=== PATIENT | male | born 1980 | race Caucasian/White ===

== ENCOUNTER 2017-06-02 15:08 | Emergency (ER) | payer MEDICAID ==
[~2017-06-02] VITALS: Ht 188 cm; Wt 80.0 kg
[~2017-06-02 15:08] MED LIST: METH10TA PO; OSEL75 PO; ROXI30TA14 PO
[2017-06-02 15:10] VITALS: BP 134/86; PULSE 77; RESP 16; TEMP 98.3; O2SAT 98
[2017-06-02] MEDS ORDERED: SODIUM CHLOR 0.9% 1000 ML INJ 1,000 ML IV ONE (15:45)
[2017-06-02] MEDS ORDERED: SODIUM CHLORIDE 0.9% FLUSH 10 ML FLUSH IVF PRN (15:45)
[2017-06-02] MEDS ORDERED: KETOROLAC TROMETHAMINE 30 MG/ML (IVP) VIAL IVP ONE (15:45)
--- NOTE | 2017-06-02 16:10 | PD ---
HPI Chief Complaint: Chest Pain Time Seen by Provider: 15:37 Travel History International Travel<30 days: No Contact w/Intl Traveler<30days: No Traveled to known affect area: No History of Present Illness HPI Is a 36-year-old man who presents emergent [place] complaining of some chest pain. Pain is mostly in the left side of the chest. She is getting over a chest cold. He states he was coughing really hard last week. He was at a productive cough and some wheezing last week. He is not having any cough now. Pain is improved with sitting forward worse with lying back. Pain is also worse with deep breathing. He denies any history of heart disease. He otherwise has been feeling well and healthy prior to this. No other complaints. History Past Medical History Medical History: Denies Significant Hx Social History Alcohol Use: No Tobacco Use: No Allergies-Medications (Allergen,Severity, Reaction): Coded Allergies: No Known Allergies (Verified , 06/02/17) Reported Meds & Prescriptions Reported Meds & Active Scripts Active No Active Prescriptions or Reported Medications Review of Systems Except as stated in HPI: all other systems reviewed are Neg Physical Exam Narrative GENERAL: Well-appearing 36 year-old woman, no acute distress. SKIN: Focused skin assessment warm/dry. NECK: Trachea midline. No JVD. CARDIOVASCULAR: Regular rate and rhythm. No murmur appreciated. RESPIRATORY: No accessory muscle use. Clear to auscultation. Breath sounds equal bilaterally. GASTROINTESTINAL: Abdomen soft, non-tender, nondistended. Hepatic and splenic margins not palpable. MUSCULOSKELETAL: No obvious deformities. No edema. NEUROLOGICAL: Awake and alert. No obvious cranial nerve deficits. Motor grossly within normal limits. Normal speech. PSYCHIATRIC: Appropriate mood and affect; insight and judgment normal. Data Data Last Documented VS Vital Signs Date Time Temp Pulse Resp B/P Pulse Ox O2 Delivery O2 Flow Rate FiO2 06/02/17 16:17 60 16 121/83 98 Room Air 06/02/17 15:10 98.3 Orders Electrocardiogram (06/02/17 15:39) Complete Blood Count With Diff (06/02/17 15:39) Comprehensive Metabolic Panel (06/02/17 15:39) Magnesium (Mg) (06/02/17 15:39) Troponin I (06/02/17 15:39) Ecg Monitoring (06/02/17 15:39) Iv Access Insert/Monitor (06/02/17 15:39) Oximetry (06/02/17 15:39) Oxygen Administration (06/02/17 15:39) Sodium Chloride 0.9% Flush (Ns Flush) (06/02/17 15:45) Chest, Pa & Lat (06/02/17 15:39) Sodium Chlor 0.9% 1000 Ml Inj (Ns 1000 M (06/02/17 15:45) Ketorolac Inj (Toradol Inj) (06/02/17 15:45) Labs Laboratory Tests Test 06/02/17 15:50 White Blood Count 6.9 TH/MM3 Red Blood Count 4.79 MIL/MM3 Hemoglobin 14.3 GM/DL Hematocrit 40.6 % Mean Corpuscular Volume 84.7 FL Mean Corpuscular Hemoglobin 29.9 PG Mean Corpuscular Hemoglobin 35.3 % Concent Red Cell Distribution Width 13.3 % Platelet Count 200 TH/MM3 Mean Platelet Volume 8.9 FL Neutrophils (%) (Auto) 52.5 % Lymphocytes (%) (Auto) 37.6 % Monocytes (%) (Auto) 8.0 % Eosinophils (%) (Auto) 1.1 % Basophils (%) (Auto) 0.8 % Neutrophils # (Auto) 3.6 TH/MM3 Lymphocytes # (Auto) 2.6 TH/MM3 Monocytes # (Auto) 0.6 TH/MM3 Eosinophils # (Auto) 0.1 TH/MM3 Basophils # (Auto) 0.1 TH/MM3 CBC Comment DIFF FINAL Differential Comment Sodium Level 138 MEQ/L Potassium Level 4.1 MEQ/L Chloride Level 105 MEQ/L Carbon Dioxide Level 25.5 MEQ/L Anion Gap 8 MEQ/L Blood Urea Nitrogen 13 MG/DL Creatinine 0.85 MG/DL Estimat Glomerular Filtration 103 ML/MIN Rate Random Glucose 93 MG/DL Calcium Level 8.8 MG/DL Magnesium Level 2.1 MG/DL Total Bilirubin 0.3 MG/DL Aspartate Amino Transf 30 U/L (AST/SGOT) Alanine Aminotransferase 37 U/L (ALT/SGPT) Alkaline Phosphatase 76 U/L Troponin I LESS THAN 0.02 NG/ML Total Protein 7.4 GM/DL Albumin 4.0 GM/DL MDM Medical Decision Making Medical Screen Exam Complete: Yes Emergency Medical Condition: Yes Interpretation(s) My review of EKG: Nonspecific widespread ST elevations, early re-pole versus pericarditis. There is no real MO segment changes to match this. LABS: CBC is unremarkable. CMP is unremarkable. Troponin negative. Chest x-ray: No evidence of acute cardiopulmonary disease. Differential Diagnosis Pericarditis, pleurisy, costochondritis, ACS, PE, gastritis, other Narrative Course Medical decision making 36 year-old woman positional chest pain starting after cold suggestive of either Percocet as a pleurisy. EKG shows wide spread ST elevations this seems more consistent with early re-pole that definite pericarditis. I'll obtain a MO interval changes. We'll check labs, troponin, chest x-ray, supportive treatment with NSAIDs, and outpatient follow-up. FINAL: Patient with likely pericarditis given EKG, positional chest pain, and history. We'll treat with NSAIDs, outpatient follow-up. Diagnosis Primary Impression: Pericarditis Additional Instructions: Take Naprosyn as prescribed. Follow-up with your primary doctor for not completely well in the next 3-5 days. Return to the emergency department for any new or worsening symptoms. Med/Other Pt SpecificInfo: No Change to Meds Scripts Naproxen (Naprosyn)500 Mg Pnt000 Mg PO BID PRN (PAIN SCALE 1 TO 10) #20 TAB Prov:Honorio Bolden MD 06/02/17 Disposition: 01 DISCHARGE HOME Condition: Stable Honorio Bolden MD Jun 02, 2017 16:10
--- NOTE | 2017-06-02 16:11 | RADRPT ---
EXAM DATE/TIME: 06/02/2017 15:56 [place] COMPARISON: No previous studies available for comparison. INDICATIONS : Chest pain. MEDICAL HISTORY : None. SURGICAL HISTORY : None. ENCOUNTER: Initial ACUITY: 1 day PAIN SCORE: 0/10 LOCATION: Bilateral chest FINDINGS: PA and lateral views of the chest demonstrate the lungs to be symmetrically aerated without evidence of mass, infiltrate or effusion. The cardiomediastinal contours are unremarkable. Osseous structure s are intact. CONCLUSION: No evidence of acute cardiopulmonary disease. Jed Savage MD on June 02, 2017 at 16:07 Board Certified Radiologist. This report was verified electronically.
[2017-06-02 16:17] VITALS: BP 121/83; PULSE 60; RESP 16; O2SAT 98
[2017-06-02 16:40] LABS: AUTOMATED NEUTROPHIL # 3.6 TH/MM3 (1.8-7.7); BASOPHIL # 0.1 TH/MM3 (0-0.2); BASOPHIL % 0.8 % (0.0-2.0); EOSINOPHIL # 0.1 TH/MM3 (0-0.4); EOSINOPHIL % 1.1 % (0.0-4.0); HEMATOCRIT 40.6 % (39.0-51.0); HEMO FLAGS DIFF FINAL; LYMPH % 37.6 % (9.0-44.0); LYMPHOCYTE # 2.6 TH/MM3 (1.0-4.8); MEAN CELL VOLUME 84.7 FL (80.0-100.0); MEAN CORPUSCULAR HEMOGLOBIN 29.9 PG (27.0-34.0); MEAN CORPUSCULAR HGB CONC 35.3 % (32.0-36.0); NEUT % 52.5 % (16.0-70.0); PLATELET COUNT 200 TH/MM3 (150-450); RED BLOOD COUNT 4.79 MIL/MM3 (4.50-5.90); RED CELL DISTRIBUTION WIDTH 13.3 % (11.6-17.2); WHITE BLOOD COUNT 6.9 TH/MM3 (4.0-11.0)
[2017-06-02 17:05] LABS: ALKALINE PHOSPHATASE 76 U/L (45-117); TOTAL BILIRUBIN ADULT 0.3 MG/DL (0.2-1.0)
[2017-06-02 17:09] LABS: ALT (GPT) 37 U/L (12-78); ANION GAP 8 MEQ/L (5-15); AST (GOT) 30 U/L (15-37); BICARBONATE 25.5 MEQ/L (21.0-32.0); BLOOD UREA NITROGEN 13 MG/DL (7-18); CHLORIDE 105 MEQ/L (98-107); GLOMERULAR FILTRATION RATE 103 ML/MIN (>89); MAGNESIUM 2.1 MG/DL (1.5-2.5); SODIUM (NA) 138 MEQ/L (136-145)
[2017-06-02 17:10] LABS: POTASSIUM 4.1 MEQ/L (3.5-5.1)
[2017-06-02] MEDS ORDERED: NAPR500 PO (17:16)
--- NOTE | 2017-06-03 16:17 | EKG ---
Date Performed: 06/02/2017 Time Performed: 15:34:23 PTAGE: 36 years EKG: Sinus rhythm ST ELEVATION, PROBABLY EARLY REPOLARIZATION BORDERLINE ECG NO PREVIOUS TRACING DOCTOR: Keo Greene Interpretating Date/Time 06/03/2017 16:15:33
== END 2017-06-02 17:41 | disposition home or self-care (01) ==
LOC: NEPD 15:08
DX: I31.9 Disease of pericardium, unspecified (principal)
CPT/HCPCS: 71020; 80053; 83735; 84484; 85025; 93005; 96361; 96374; 99285; J1885; J7030

== ENCOUNTER 2018-04-13 11:05 | Emergency (ER) | payer MEDICAID ==
[~2018-04-13] VITALS: Ht 188 cm; Wt 91.5 kg
[~2018-04-13 11:05] MED LIST changes: -METH10TA PO; +NAPR500 PO; -OSEL75 PO; -ROXI30TA14 PO
[2018-04-13] MEDS ORDERED: IOHEXOL 300 MG/ML 100 ML BTL (for Rad CT) IVCONTRAST ONE (11:06)
[2018-04-13 11:09] VITALS: BP 143/84; PULSE 77; RESP 22; TEMP 97.7; O2SAT 100
[2018-04-13] MEDS ORDERED: SODIUM CHLOR 0.9% 1000 ML INJ 1,000 ML IV SCH (11:17)
--- NOTE | 2018-04-13 11:22 | PD ---
HPI Chief Complaint: Abdominal Pain Time Seen by Provider: 11:12 Travel History International Travel<30 days: No Contact w/Intl Traveler<30days: No Traveled to known affect area: No History of Present Illness HPI The patient is a 37-year-old male who presents to the emergency department for abdominal pain. The patient states 3 days ago he developed generalized abdominal pain, however, he now notes abdominal pain is located the right lower quadrant. He does complain of pain in the right lower quadrant that is worse with coughing, sneezing, and certain movements. He denies any nausea, vomiting, or diarrhea. He did have a bowel movement earlier today, slightly smaller than normal, but denies any constipation. He denies any associated fever, chills, or sweats. However, pain is progressing and is now localized to the right lower quadrant. He denies any previous abdominal surgeries. [facility] Past Medical History Medical History: Denies Significant Hx Past Surgical History Surgical History: No Previous Surgery Social History Alcohol Use: No Tobacco Use: Yes (CIGARS) Substance Use: Yes (MARIJUANA) Allergies-Medications (Allergen,Severity, Reaction): Coded Allergies: No Known Allergies (Verified Adverse Reaction, Unknown, 04/13/18) Reported Meds & Prescriptions Reported Meds & Active Scripts Active No Active Prescriptions or Reported Medications Review of Systems Except as stated in HPI: all other systems reviewed are Neg General / Constitutional: No: Fever, Chills Cardiovascular: No: Chest Pain or Discomfort Respiratory: No: Shortness of Breath Gastrointestinal: Positive: Abdominal Pain, No: Nausea, Vomiting, Diarrhea Genitourinary: No: Dysuria, Hematuria Skin: No Rash Physical Exam Narrative GENERAL: Awake, alert, pleasant 37-year-old male who appears his stated age and is in no acute respiratory distress. SKIN: Focused skin assessment warm/dry. HEAD: Atraumatic. Normocephalic. EYES: Pupils equal and round. No scleral icterus. No injection or drainage. ENT: No nasal bleeding or discharge. Mucous membranes pink and moist. NECK: Trachea midline. No JVD. CARDIOVASCULAR: Regular rate and rhythm. No murmur appreciated. RESPIRATORY: No accessory muscle use. Clear to auscultation. Breath sounds equal bilaterally. GASTROINTESTINAL: Abdomen soft, positive McBurney's. Mild guarding. Negative Leonardo's. Negative Rovsing. Negative obturator. Negative heel tap. MUSCULOSKELETAL: No obvious deformities. No clubbing. No cyanosis. No edema. NEUROLOGICAL: Awake and alert. No obvious cranial nerve deficits. Motor grossly within normal limits. Normal speech. PSYCHIATRIC: Appropriate mood and affect; insight and judgment normal. Data Data Last Documented VS Vital Signs Date Time Temp Pulse Resp B/P (MAP) Pulse Ox O2 Delivery O2 Flow Rate FiO2 04/13/18 11:31 18 98 Room Air 04/13/18 11:09 97.7 77 143/84 (103) Orders Orders Complete Blood Count With Diff (04/13/18 11:17) Comprehensive Metabolic Panel (04/13/18 11:17) Lipase (04/13/18 11:17) Urinalysis - C+S If Indicated (04/13/18 11:17) Ct Abd/Pel W Iv Contrast(Rout) (04/13/18 11:17) Iv Access Insert/Monitor (04/13/18 11:17) Ecg Monitoring (04/13/18 11:17) Oximetry (04/13/18 11:17) Morphine Inj (Morphine Inj) (04/13/18 11:30) Sodium Chlor 0.9% 1000 Ml Inj (Ns 1000 M (04/13/18 11:17) Sodium Chloride 0.9% Flush (Ns Flush) (04/13/18 11:30) Ondansetron Odt (Zofran Odt) (04/13/18 11:30) Oral Contrast - Adult (04/13/18 11:21) Diatrizoate Liq (Md [place]bert Liq) (04/13/18 11:24) Nicotine 21 Mg Patch.24 Hr (Habitrol 21 (04/13/18 13:00) Iohexol 300 Inj (Rad Ct) (Omnipaque 300 (04/13/18 11:06) Ketorolac Inj (Toradol Inj) (04/13/18 14:15) Morphine Inj (Morphine Inj) (04/13/18 14:15) Labs Laboratory Tests Test 04/13/18 11:21 04/13/18 12:00 White Blood Count 7.7 TH/MM3 Red Blood Count 5.02 MIL/MM3 Hemoglobin 14.8 GM/DL Hematocrit 42.6 % Mean Corpuscular Volume 85.0 FL Mean Corpuscular Hemoglobin 29.6 PG Mean Corpuscular Hemoglobin Concent 34.8 % Red Cell Distribution Width 13.1 % Platelet Count 217 TH/MM3 Mean Platelet Volume 8.7 FL Neutrophils (%) (Auto) 64.8 % Lymphocytes (%) (Auto) 25.8 % Monocytes (%) (Auto) 7.7 % Eosinophils (%) (Auto) 0.9 % Basophils (%) (Auto) 0.8 % Neutrophils # (Auto) 5.0 TH/MM3 Lymphocytes # (Auto) 2.0 TH/MM3 Monocytes # (Auto) 0.6 TH/MM3 Eosinophils # (Auto) 0.1 TH/MM3 Basophils # (Auto) 0.1 TH/MM3 CBC Comment DIFF FINAL Differential Comment Blood Urea Nitrogen 7 MG/DL Creatinine 0.92 MG/DL Random Glucose 100 MG/DL Total Protein 7.6 GM/DL Albumin 4.0 GM/DL Calcium Level 8.7 MG/DL Alkaline Phosphatase 83 U/L Aspartate Amino Transf (AST/SGOT) 17 U/L Alanine Aminotransferase (ALT/SGPT) 28 U/L Total Bilirubin 0.4 MG/DL Sodium Level 139 MEQ/L Potassium Level 4.0 MEQ/L Chloride Level 107 MEQ/L Carbon Dioxide Level 23.9 MEQ/L Anion Gap 8 MEQ/L Estimat Glomerular Filtration Rate 93 ML/MIN Lipase 158 U/L Urine Color Straw Urine Turbidity CLEAR Urine pH 7.0 Urine Specific [place] 1.002 Urine Protein NEG mg/dL Urine Glucose (UA) NEG mg/dL Urine Ketones NEG mg/dL Urine Occult Blood NEG Urine Nitrite NEG Urine Bilirubin NEG Urine Urobilinogen LESS THAN 2 mg/dL Urine Leukocyte Esterase NEG Urine RBC LESS THAN 1 /hpf Urine WBC LESS THAN 1 /hpf Microscopic Urinalysis Comment CULT NOT INDICATED MDM Medical Decision Making Medical Screen Exam Complete: Yes Emergency Medical Condition: Yes Medical Record Reviewed: Yes Interpretation(s) Laboratory Tests Test 04/13/18 11:21 04/13/18 12:00 White Blood Count 7.7 TH/MM3 Red Blood Count 5.02 MIL/MM3 Hemoglobin 14.8 GM/DL Hematocrit 42.6 % Mean Corpuscular Volume 85.0 FL Mean Corpuscular Hemoglobin 29.6 PG Mean Corpuscular Hemoglobin Concent 34.8 % Red Cell Distribution Width 13.1 % Platelet Count 217 TH/MM3 Mean Platelet Volume 8.7 FL Neutrophils (%) (Auto) 64.8 % Lymphocytes (%) (Auto) 25.8 % Monocytes (%) (Auto) 7.7 % Eosinophils (%) (Auto) 0.9 % Basophils (%) (Auto) 0.8 % Neutrophils # (Auto) 5.0 TH/MM3 Lymphocytes # (Auto) 2.0 TH/MM3 Monocytes # (Auto) 0.6 TH/MM3 Eosinophils # (Auto) 0.1 TH/MM3 Basophils # (Auto) 0.1 TH/MM3 CBC Comment DIFF FINAL Differential Comment Blood Urea Nitrogen 7 MG/DL Creatinine 0.92 MG/DL Random Glucose 100 MG/DL Total Protein 7.6 GM/DL Albumin 4.0 GM/DL Calcium Level 8.7 MG/DL Alkaline Phosphatase 83 U/L Aspartate Amino Transf (AST/SGOT) 17 U/L Alanine Aminotransferase (ALT/SGPT) 28 U/L Total Bilirubin 0.4 MG/DL Sodium Level 139 MEQ/L Potassium Level 4.0 MEQ/L Chloride Level 107 MEQ/L Carbon Dioxide Level 23.9 MEQ/L Anion Gap 8 MEQ/L Estimat Glomerular Filtration Rate 93 ML/MIN Lipase 158 U/L Urine Color Straw Urine Turbidity CLEAR Urine pH 7.0 Urine Specific [place] 1.002 Urine Protein NEG mg/dL Urine Glucose (UA) NEG mg/dL Urine Ketones NEG mg/dL Urine Occult Blood NEG Urine Nitrite NEG Urine Bilirubin NEG Urine Urobilinogen LESS THAN 2 mg/dL Urine Leukocyte Esterase NEG Urine RBC LESS THAN 1 /hpf Urine WBC LESS THAN 1 /hpf Microscopic Urinalysis Comment CULT NOT INDICATED Differential Diagnosis Differential diagnosis includes appendicitis, mesenteric adenitis, Crohn's disease, ulcerative colitis, inflammatory bowel disease, IBS, nephrolithiasis, pyelonephritis, epididymitis, referred pain. Narrative Course IV was established, labs are drawn and sent, the patient was placed on cardiac telemetry monitoring and continuous pulse oximetry monitoring. The patient was administered morphine, Zofran, and IV fluids. The patient was kept n.p.o. The patient's last oral intake was 11 AM with Pepsi. He has had no solid food to eat this morning. CT of the abdomen and pelvis with IV and oral contrast was obtained. Laboratory evaluation is unremarkable. White count is normal. UA is unremarkable. The patient CT the abdomen and pelvis is unremarkable, no evidence of appendicitis. The patient was reevaluated, his pain has improved, however, he still has mild pain. Therefore, the patient was administered Toradol and morphine. Patient's vitals were unremarkable, labs are unremarkable , and CT is unremarkable. The patient is stable for outpatient follow-up. He is advised to follow-up with gastroenterology if symptoms persist. Diagnosis Primary Impression: Abdominal pain Qualified Codes: R10.31 - Right lower quadrant pain Patient Instructions: General Instructions Additional Instructions: Please provide the patient a copy of his CT results and lab results at discharge. Medications as directed. Follow-up with her primary physician and/ or gastroenterology if symptoms persist. Clear liquid diet and advance as tolerated. Med/Other Pt SpecificInfo: Prescription(s) given Scripts Hydrocodone-Acetaminophen ([place]) 5 Mg-325 Mg Tab 1 TAB PO Q6H Y for PAIN, #10 TAB 0 Refills Prov: Kamlesh Franco MD 04/13/18 Ondansetron Odt (Zofran Odt) 4 Mg Tab 4 MG SL Q6HR Y for Nausea/Vomiting, #10 TAB 0 Refills Prov: Kamlesh Franco MD 04/13/18 Disposition: 01 DISCHARGE HOME Condition: Stable Kamlesh Franco MD Apr 13, 2018 11:22
[2018-04-13] MEDS ORDERED: DIATRIZOATE MEGLUM/DIATRIZOATE SOD 9 ML CUP ONE (11:24)
[2018-04-13] MEDS ORDERED: ONDANSETRON ODT 4 MG TAB PO ONE (11:30)
[2018-04-13] MEDS ORDERED: SODIUM CHLORIDE 0.9% FLUSH 10 ML FLUSH IV FLUSH PRN (11:30)
[2018-04-13] MEDS ORDERED: MORPHINE SULFATE 4 MG/ML INJ IV PUSH ONE ×2 (11:30→14:45)
[2018-04-13 11:31] VITALS: RESP 18; O2SAT 98
[2018-04-13 12:05] LABS: BASOPHIL # 0.1 TH/MM3 (0-0.2); BASOPHIL % 0.8 % (0.0-2.0); EOSINOPHIL # 0.1 TH/MM3 (0-0.4); EOSINOPHIL % 0.9 % (0.0-4.0); HEMATOCRIT 42.6 % (39.0-51.0); HEMOGLOBIN 14.8 GM/DL (13.0-17.0); LYMPH % 25.8 % (9.0-44.0); MEAN CORPUSCULAR HEMOGLOBIN 29.6 PG (27.0-34.0); MEAN CORPUSCULAR HGB CONC 34.8 % (32.0-36.0); MEAN PLATELET VOLUME 8.7 FL (7.0-11.0); MONO % 7.7 % (0.0-8.0); MONOCYTE # 0.6 TH/MM3 (0-0.9); NEUT % 64.8 % (16.0-70.0); PLATELET COUNT 217 TH/MM3 (150-450); RED BLOOD COUNT 5.02 MIL/MM3 (4.50-5.90); RED CELL DISTRIBUTION WIDTH 13.1 % (11.6-17.2); WHITE BLOOD COUNT 7.7 TH/MM3 (4.0-11.0)
[2018-04-13 12:20] LABS: BILIRUBIN, URINE NEG (NEG); BLOOD, URINE NEG (NEG); GLUCOSE,URINE NEG (NEG); KETONE, URINE NEG (NEG); NITRITE,URINE NEG (NEG); URINE COLOR Straw (YELLW/STRAW); URINE LEUKOCYTE ESTERASE NEG (NEG)
[2018-04-13 12:24] LABS: ALT (GPT) 28 U/L (12-78); AST (GOT) 17 U/L (15-37); BICARBONATE 23.9 MEQ/L (21.0-32.0); BLOOD UREA NITROGEN 7 MG/DL (7-18); CALCIUM 8.7 MG/DL (8.5-10.1); CHLORIDE 107 MEQ/L (98-107); CREATININE 0.92 MG/DL (0.60-1.30); GLOMERULAR FILTRATION RATE 93 ML/MIN (>89); GLUCOSE,RANDOM 100 MG/DL (74-106); SODIUM (NA) 139 MEQ/L (136-145)
[2018-04-13 12:26] LABS: ALKALINE PHOSPHATASE 83 U/L (45-117); TOTAL BILIRUBIN ADULT 0.4 MG/DL (0.2-1.0); TOTAL PROTEIN 7.6 GM/DL (6.4-8.2)
[2018-04-13] MEDS ORDERED: NICOTINE 21 MG/24 HR PATCH T-DERMAL ONE (13:00)
--- NOTE | 2018-04-13 13:57 | RADRPT ---
EXAM DATE: 04/13/2018 1:50 PM EDT AGE/SEX: 37 years / Male INDICATIONS: Abdomen pain in right lower region, possible appendicitis. CLINICAL DATA: This is the patient's initial encounter. Patient reports that signs and symptoms have been present for 3 days and indicates a pain score of 8/10. MEDICAL/SURGICAL HISTORY: None. None. ORAL CONTRAST: Prescribed oral contrast ingested. RADIATION DOSE: 6.64 CTDI (mGy) COMPARISON: No prior exams available for comparison. TECHNIQUE: Multiple contiguous axial images were obtained through the abdomen and pelvis following b olus infusion of 100 ml Omnipaque 350 (iohexol) nonionic water-soluble contrast as a single exam do se. Prescribed oral contrast ingested. Using automated exposure control and adjustment of the mA and /or kV according to patient size, the radiation dose was kept as low as reasonably achievable to obta in optimal diagnostic quality images. FINDINGS: Lower chest: No acute abnormality is identified. Hepatobiliary: No focal liver lesion is identified. Hepatic vasculature demonstrates no abnormality. No calcified gallstones are present. Kidneys: No hydronephrosis, stone, or mass. Adrenal Glands: Within normal limits. Spleen: Within normal limits. Pancreas: Within normal limits. Vascular: The aorta is nonaneurysmal. There is mild atherosclerotic calcification of the right common iliac artery. Bowel/Mesentery: The stomach and small bowel demonstrate no abnormality. No acute colon abnormality i s seen. There is no free intraperitoneal air or fluid. The appendix is normal. Abdominal Wall: No hernia is visualized. Retroperitoneum: No lymphadenopathy. Bladder: No wall thickening or mass. Reproductive: Within normal limits. Inguinal: No lymphadenopathy or hernia. Musculoskeletal: No acute osseous abnormality is identified. CONCLUSION: No acute finding is identified within the abdomen or pelvis. The appendix is normal. Electronically signed by: Jed Prajapati MD 04/13/2018 1:56 PM EDT
[2018-04-13] MEDS ORDERED: NORC5TAB PO (14:11)
[2018-04-13] MEDS ORDERED: ZOFR4TAB3 SL (14:11)
[2018-04-13] MEDS ORDERED: MORPHINE SULFATE 2 MG/ML SYRINGE IV PUSH ONE (14:15)
[2018-04-13] MEDS ORDERED: KETOROLAC TROMETHAMINE 30 MG/ML (IVP) VIAL IV PUSH ONE (14:15)
== END 2018-04-13 15:15 | disposition home or self-care (01) ==
LOC: NEPC 11:05
DX: R10.31 Right lower quadrant pain (principal); F12.90 Cannabis use, unspecified, uncomplicated; Z72.0 Tobacco use
CPT/HCPCS: 74177; 80053; 81001; 83690; 85025; 96361; 96374; 96375; 96376; 99284; J1885; J2270; J7030; Q9963; Q9967